=== PATIENT | female | born 1960 | race Caucasian/White ===

== ENCOUNTER 2019-03-29 09:18 | Emergency (ER) | payer SELFPAY ==
[~2019-03-29] VITALS: Ht 165.1 cm; Wt 134.3 kg
[2019-03-29 09:55] VITALS: BP 139/51
[2019-03-29] MEDS ORDERED: KETOROLAC TROMETH 60MG/2ML VIAL IM ONE (11:00)
== END 2019-03-29 10:59 | disposition home or self-care (01) ==
LOC: EDBD 09:18 → ER 09:25
DX: S09.90XA Unspecified injury of head, initial encounter (principal); M47.892 Other spondylosis, cervical region; J45.909 Unspecified asthma, uncomplicated; I10 Essential (primary) hypertension; Z90.710 Acquired absence of both cervix and uterus; V43.52XA Car driver injured in collision with other type car in traffic accident, initial encounter; Y93.89 Activity, other specified; Y99.8 Other external cause status; Y92.410 Unspecified street and highway as the place of occurrence of the external cause
CPT/HCPCS: 70450; 72125; 96372; 99284; J1885